=== PATIENT | female | born 1955 | race Caucasian/White ===

== ENCOUNTER 2021-08-16 02:03 | Outpatient (CLI) | payer MEDICARE, SELFPAY ==
[2021-08-16 10:39] LABS: ALT 20 U/L (14-59); AST 22 U/L (15-37); Albumin 4.1 g/dL (3.4-5.0); Alkaline Phosphatase 47 U/L (46-116); Anion Gap 8.4 mmol/L (3-11); BUN 18 mg/dL (7-18); Bilirubin, Total 0.9 mg/dL (0.2-1.0); CO2 30.6 mmol/L (21.0-32.0); Calcium 7.4 mg/dL (8.5-10.1); Chloride 102 mmol/L (98-107); Estimated GFR 55.64 (mL/min/1.73m2); Glucose 82 mg/dL (74-106); Magnesium 1.8 mg/dL (1.8-2.4); PHOSPHORUS 6.5 mg/dL (2.6-4.7); Sodium 141 mmol/L (136-145); TSH (W/Ref FT4) 0.14 uIU/mL (0.36-3.74); Total Protein 7.1 g/dL (6.4-8.2)
[2021-08-16 10:49] LABS: Vitamin D 25 Total 72.6 ng/mL (30-100)
[2021-08-16 11:07] LABS: FREE T4 1.24 ng/dL (0.76-1.46)
[2021-08-16 11:22] LABS: Calculated LDL 138 mg/dL (<100); Cholesterol 240 mg/dL (<200); HDL Cholesterol 90 mg/dL (40-60); Triglyceride 64 mg/dL (<150)
[2021-08-17 12:11] LABS: Parathyroid Hormone,Intact <6 pg/mL (19-88)
== END 2021-08-16 02:04 | disposition home or self-care (01) ==
PROVIDERS: PCP Nurse Practitioner Adult Health; Visit Provider Nurse Practitioner Adult Health
DX: E03.9 Hypothyroidism, unspecified (principal); E20.9 Hypoparathyroidism, unspecified; E55.9 Vitamin D deficiency, unspecified; Z76.89 Persons encountering health services in other specified circumstances
CPT/HCPCS: 36415; 80053; 80061; 82306; 83735; 83970; 84100; 84439; 84443

== ENCOUNTER 2021-09-19 00:20 | Outpatient (CLI) | payer MEDICARE, OTHER, SELFPAY ==
--- NOTE | 2021-09-19 13:32 | DI.MAMMO_ITS ---
Exam(s) MAMMO DIAGNOSTIC BI EXAM: MAMMO DIAGNOSTIC BI CLINICAL HISTORY: r/o mass or other abn; R BRST Cellul 07/30/21,? IMPLANT STATUS,N61.0, TECHNIQUE: Mammograms were interpreted according to the usual protocol including computer analysis w ith CAD system, tomosynthesis and C-view imaging. Craniocaudal and mediolateral oblique Full Field Digital Mammography views of the both with Computer Aided Diagnosis followed by Tomosynthesis COMPARISON: No exams were available for comparison FINDINGS: The breasts are composed of scattered fibroglandular densities, Breast Density category B. No suspicious masses or suspicious microcalcifications are seen. No skin thickening or abnormal axillary lymph nodes are seen. There has been no significant change from prior exams. Bilateral subpectoral implants. The implants appear intact. No significant capsular calcification. Masses/Architectural Distortion: None seen. Microcalcifications: No suspicious pleomorphic-type are seen. Incidental vascular calcifications IMPRESSION: BI-RADS Category 1, Negative mammogram Yearly screening mammography is recommended. Breast Density - Category B, scattered fibroglandular densities. A negative radiographic report should not delay biopsy if a dominant or clinically suspicious mass is present. Up to ten percent of cancers are not identified on mammography. A negative report may reinforce clinical impression. Adenosis and dense breasts may obscure an underlying neoplasm. False positive reports average 6 to 10%. Patient will receive a letter notifying them of these results.
== END 2021-09-19 00:40 ==
PROVIDERS: PCP Nurse Practitioner Adult Health; Visit Provider Nurse Practitioner Adult Health
DX: N61.0 Mastitis without abscess (principal); Z98.82 Breast implant status
CPT/HCPCS: 77062; 77066; G0279

== ENCOUNTER → 2023-09-01 13:09 | Outpatient (CLI) | payer MEDICARE, SELFPAY ==
--- NOTE | 2023-09-01 | DI.RAD_ITS ---
Exam(s) XR WRIST LT COMPLETE EXAM: XR WRIST LT COMPLETE CLINICAL HISTORY: TRAUMA,LT WRIST PAIN, M25.532. TECHNIQUE: 2D digital imaging was performed of the left wrist. Three images were obtained. PA, obl ique and lateral views were obtained. COMPARISON: No exams were available for comparison FINDINGS: BONES: No acute fracture is present. No bony destructive lesion is seen. JOINTS: The carpal bones are normally aligned. SOFT TISSUE: Normal. IMPRESSION: No acute fracture or dislocation. DATA REPOSITORY: RADIATION DOSE DELIVERED:
== END ==
PROVIDERS: PCP Nurse Practitioner Adult Health; Visit Provider Nurse Practitioner Primary Care
DX: M25.532 Pain in left wrist (principal)
CPT/HCPCS: 73110

== ENCOUNTER → 2023-12-08 12:55 | Outpatient (BNVA) | payer MEDICARE, SELFPAY | PROVIDERS: PCP Nurse Practitioner Adult Health; Referring Provider Nurse Practitioner Adult Health; Visit Provider Student in an Organized Health Care Education/Training Program | DX: M19.032 Primary osteoarthritis, left wrist (principal) | CPT/HCPCS: 99203 ==